=== PATIENT | male | born 1935 | race Caucasian/White ===

== ENCOUNTER 2018-06-02 07:14 | Day surgery (SDC) | payer OTHER ==
[~2018-06-02] VITALS: Ht 175.3 cm; Wt 77.3 kg
[~2018-06-02 07:14] MED LIST: CLOBET30L TOP; DOCU100 PO; LOPE2C PO; MELA3 PO; MIRALAX17 GM PO; MVI PO; TRAZ50 PO; [UNRECOGNIZED DRUG - OTHER] TOP
--- NOTE | 2018-06-02 08:05 | NUR ---
History, Chart, Medications and Allergies reviewed before start of procedure. Patient confirms NPO status and agrees with scheduled surgery. Lungs clear T/O to Auscultation. Patient reports completing Chlorhexadine shower X2 prior to admission to hospital. Patient States Post-Procedure ride home has been arranged. Pre-Op teaching done. Pt verbalizes understanding.
--- NOTE | 2018-06-02 08:19 | NUR ---
REPORT TO NIKO COLMENARES RN.
--- NOTE | 2018-06-02 08:40 | NUR ---
REASSUMED CARE OF PATIENT.
--- NOTE | 2018-06-02 08:44 | NUR ---
COUNTER PROFESSIONAL REPORT COMPLETED AT BEDSIDE WITH ARBEN KO RN.
--- NOTE | 2018-06-02 11:34 | NUR ---
PT GIVEN APPLE JUICE TO DRINK. PT BIOX BOUNCING BETWEEN 87-93. PT INSTRUCTED TO TAKE LARGE DEEP BREATHS OFTEN. PT VERBALIZED AND DEMONSTRATES UNDERSTANDING. DRESSING D&I.
--- NOTE | 2018-06-02 12:04 | NUR ---
SECOND APPLE JUICE GIVEN AND NORCO 1 TAB PO ORDERED. FRIEND ALEXANDRA NOT HERE YET. WILL CONT TO MONITOR PT AND ENCOURAGE TO DEEP BREATH AND COUGH, OVERALL O2 SATS HAVE IMPROVED.
--- NOTE | 2018-06-02 16:54 | NUR ---
DR DUMONT DECIDED TO ADMIT PATIENT TO SURGICAL FLOOR FOR EXTENDED OBSERVATIONS. PT REMAINED STABLE T/O RECOVERY AND STAY IN SDS WHILE WAITING FOR A BED. PT TRAY SENT TO THE ROOM. ALL BELONIGNS PROVIDED ALONG WITH PT AND SCROTUM PROTECTOR. PT CONTINUES TO DENY PAIN T/O.
--- NOTE | 2018-06-02 17:52 | NUR ---
SUMMARY PATINT WITH LEFT GROIN DRESSING DRY AND INTACT. GAUZE DRESSING IN PLACE WITHOUT DRAINAGE. PATIENT MEDICATED FOR 2-3/10 GROIN PAIN. DENIES NAUSEA- EATING DINNER AT THIS TIME
--- NOTE | 2018-06-03 04:16 | NUR ---
SHIFT SUMMARY: PT POD #1 FOR INGUINAL HERNIA REPAIR TO LEFT SIDE. A&O X4. VS WNL. PAIN MANAGED WITH 1 NORCO Q4 PER EMAR. PT OOB ONCE WITH ONE ASSIST USING FWW. VOIDING SML AMT. KAROL REG DIET. DENIES PASSING FLATUS. RESTING MOST OF SHIFT. USING CALL LIGHT APPROPRIATLY.
--- NOTE | 2018-06-03 17:21 | NUR ---
SHIFT SUMMARY PT POD 1 L INGUINAL HERNIA REPAIR. GAUZE DRESSING IN PLACE, C/D/I. STILL HAS SWELLING IN L GROIN AREA, AWARE. PT TOLERATING REGULAR DIET WITH NO N/V. 1 ASSIST FOR TRANSFERS TO BATHROOM W/FWW. PT HAS DENIED PAIN THIS SHIFT.
--- NOTE | 2018-06-03 19:13 | NUR ---
CIWA PT HAD INCREASED AGGITATION AT APROX 1745, PT HAS HX OF DRINKING 3 DRINKS/DAY-DOES NOT VERBALIZE WHAT TYPE OF ALCOHOL HE DRINKS. CIWA DONE ON PT, CIWA SCORE OF 7. DR PARIKH NOTIFIED, VERBAL ORDER FOR CIWA ORDER SET. PT MEDICATED WITH 1MG PO ATIVAN-PT APPEARS MORE CALM AT THIS TIME, CIWA OF 5. CORE MACHINE TENDER AND NURSING DE ICER ELEMENT WINDER NOTIFIED.
--- NOTE | 2018-06-04 04:16 | NUR ---
SHIFT SUMMARY: PT POD #2 FOR L INGUINAL HERNIA REPAIR. PT DENIES PAIN T/O SHIFT. GIVEN IV ATIVAN 1MG AND LIBRIUM PER ELELAVTED CIWA FOR INCREASED AGITATION AND TREMORS. HIGHEST CIWA AT 7. CIWA STABLE AT THIS TIME. CONTINUING TO VOID SML AMT. POOR PO INTAKE. SLEEPING MOST OF SHIFT.
--- NOTE | 2018-06-04 17:52 | NUR ---
SUMMARY CIWA 0 THROUGHOUT SHIFT. PATIENT UP TO RESTROOM WITH 2 PERSON ASSIST AND WALKER, UNSTEADY ON FEET AND IMPULSIVE. DUE TO PREVIOUS HIP SURGERY PATIENT STANDS OVER TOILET TO VOID. ABD DRESSING DRY AND INTAACT, SWELLING AND BRUISIN TO LEFT GROIN AND SCROTUM, PATIENT REFUSES TO WEAR ATHLETIC SUPPORT.
--- NOTE | 2018-06-05 04:07 | NUR ---
SHIFT SUMMARY: NO ACUTE CHANGES THIS SHIFT. PT POD #3 NOW FOR L INGUINAL HERNIA REPAIR. CIWA'S REMAINED STABLE T/O SHIFT AT 0. MEDICATED WITH NORCO ONCE THIS SHIFT PER EMAR. SALINE LOCKED. DRINKING AND VOIDING ADEQUATE AMT. PT OFTEN BECOMES FRUSTURATED R/T DIFFICULTY IN VOIDING IN URINAL. PROVIDING ASSISTANCE PRN. ATTENDS IN PLACE. RESTING MOST OF SHIFT. NO CONCERNS AT THIS TIME.
--- NOTE | 2018-06-05 07:24 | NUR ---
06/05/18 0724 Farida Holcomb VERIFICATIONS: EDIT CHART.
--- NOTE | 2018-06-05 07:50 | NUR ---
pt on bed woodruff worried about having another loose bm also has urinal to void est 200 in it offered to empty it pt wanting to keep it pt dressing to l groin cdi pt has swelling still to site worried that is is still swollen
--- NOTE | 2018-06-05 09:20 | NUR ---
dr riddle called after talking with ss req pt/ot consult
--- NOTE | 2018-06-05 13:27 | NUR ---
assisted pt to the bathroom pt had to stand to have a bm two max assist
--- NOTE | 2018-06-05 14:34 | NUR ---
pt attempted to get up needs assist help to bathroom gas only assisted back to bed
--- NOTE | 2018-06-05 15:00 | NUR ---
dr riddle by to see pt
--- NOTE | 2018-06-05 16:29 | NUR ---
pt watching tv pt had visitor earlier
--- NOTE | 2018-06-05 17:52 | NUR ---
pt eating dinner
--- NOTE | 2018-06-06 05:39 | NUR ---
POD 4 S/P LEFT INGUINAL HERNIA REPAIR. PT VSS T/O NIGHT. DRESSING CDI, SWELLING NOTED AROUND SITE. PT REP PAIN KAROL, DENIED NEED FOR PAIN MEDS. PT KAROL REG PO, IS VOIDING URINE W/O DIFFICUTLY, HAD 1 LARGE BM THIS SHIFT. PT IS MILDLY AGITATED AT TIMES, LIBRIUM GIVEN X1 PER PT REQ R/T ETOH "RESTLESSNESS" PT USING CALL LIGHT FOR ASSISTANCE, WILL CONT TO MONITOR UNTIL REP GIVEN TO ONCOMING RN.
--- NOTE | 2018-06-06 07:23 | NUR ---
pt unable to locate his urinal voided in his coffee cup assisted him with a urinal also reposistioned him and placed him on bed woodruff per his req will ask dr riddle if i can change the dressing
--- NOTE | 2018-06-06 10:00 | NUR ---
pt amb in hallway with physical therapy req hh for patient
--- NOTE | 2018-06-06 11:47 | NUR ---
called pt's friend brandi talked with him re discharge home vs snf placment and physical therapy req for hh worried wanting to talk with ss about it i called dr riddle office and left a message
--- NOTE | 2018-06-06 15:18 | NUR ---
PT REQ PAIN MEDS 1 TAB PO NORCO GIVEN
--- NOTE | 2018-06-06 17:16 | NUR ---
PT'S CAREGIVER CAME BY WAS ABLE TO TALK WITH SS RE PT COMING HOME STATED HE IS TALKING WITH THE [facility] TO TR[facility] AND GET HIM OVER THERE STATED THAT PT AND HIS MOTHER DO NOT GET ALONG HE ALSO TALKED WITH DR DUMONT RE THIS MATTER
--- NOTE | 2018-06-06 17:45 | NUR ---
pt eating dinner
--- NOTE | 2018-06-07 04:21 | NUR ---
CONTINUES TO IMPROVE, VOICED HALLUCINATIONS WHILE TRYING TO REST. WILLCUSS WHILE USING URINAL. REFUSES MIRALAX, STATES THAT IT TASTES BAD. DENIES PAIN, DISCOMFORT, OR FURTHER NEEDS AT THIS TIME. SAFETY MEASURES IN PLACE. WILL GIVE HAND OFF TO ONCOMING SHIFT USING SBAR DURING BEDSIDE REPORT.
--- NOTE | 2018-06-07 08:20 | NUR ---
PT STACEY MATAMOROS DISCUSSED PRIOR SVC. A/O. DENIES PAIN AT THIS TIME. H/R IRREG, STATES THINKS HX OF AFIB. NO MURMER NOTED. NO TELE. LUNGS CLEAR SOME DIM IN BASES. ON R/A. RESP EASY, UNLABORED. . BT X4 LAST BM 2 DAYS. VOIDS URINAL. HIP FUSION, UNABLE TO BEND AT HIPS. 2 ASST TO BATHROOM. BED IN LOW POSITION, CALL LIITE IN REACH, CALLS APPROP
--- NOTE | 2018-06-07 14:07 | NUR ---
RE IRREG, H/R. PT STATES DID TAKE DIGOXIN AT ONE TIME, DOES NOT THINK WAS ON ANTICOAG. PT STATES [facility] NOT [facility] ANY MORE. SO HAS NOT TAKEN FOR COUPLE MONTHS.
--- NOTE | 2018-06-07 16:26 | NUR ---
KELVIN Jennings/Rishi PUMP SERVICER CALLED. NOT ABALE TO REACH ALEXANDRA/ CHAD WELLS. I CALLED TC
--- NOTE | 2018-06-07 16:39 | NUR ---
PT PLEASANT TODAY. DENIES PAIN. ALEXANDRA CARE ASSISTER NOT ABLE TO TAKE HOME TODAY. EXPECTING TO [facility] UP [facility]OUGH [facility] PER ALEXANDRA. KELVIN CALLED AND CANNOT REACH HIM. CALLED AND ATTEMPTED TO LEAVE MS. PT VERY STIFF, UNABLE TO BEND WELL AT HIPS. 2 ASST. EXPECTING TO GO HOME TODAY OR TOMORROW. BED IN LOW POSITIOIN, CALL LITE IN REACH, CALLS APPROP.
--- NOTE | 2018-06-07 16:44 | NUR ---
[address] TIM MERCADO IRREG H/R AND PT STATES NO DIGOXIN OR THINNERS. DR GLASS AND STATES PT TO SEE [facility] TO RESOLVE.
--- NOTE | 2018-06-07 19:32 | NUR ---
ALEXANDRA IN ROOM. STATES CAN TAKE PT HOME TOMORRWO TO [place] IF NECESSARY. [facility] TO HAVE MEETING TO SEE HOW / IF CAN BE PLACED THERE. ANIMAL TRAINER NOTIFIED.
--- NOTE | 2018-06-08 06:18 | NUR ---
CONTINUES TO IMPROVE, RESTED WELL THIS SHIFT. WILL STILL CUSS WHILE USING URINAL. ASKED FOR MIRALAX TO BE GIVEN IN APPLE JUICE. DENIES PAIN, DISCOMFORT, OR FURTHER NEEDS AT THIS TIME. SAFETY MEASURES IN PLACE. WILL GIVE HAND OFF TO ONCOMING SHIFT USING SBAR DURING BEDSIDE REPORT.
--- NOTE | 2018-06-08 13:14 | NUR ---
FRIEND IN ROOM TALKING WITH CASE MANAGEMENT.
--- NOTE | 2018-06-08 14:22 | NUR ---
PT WORKING WITH THERAPY.
--- NOTE | 2018-06-08 16:12 | NUR ---
DR DUMONT HERE. DISCUSSED PT'S STATUS.
[2018-06-08] MEDS ORDERED: HYDR1TAB94 PO (16:59)
--- NOTE | 2018-06-08 18:58 | NUR ---
DISCHARGE: PT OUT OF HOSPITAL WITH GURNEY TRANSPORT. BELONGINGS AND PAPERWORK SENT WITH PT. IV OUT WNL. PT/FRIEND REPORTED EARLIER TODAY UNDERSTANDING DISCHARGE INSTRUCTIONS PT IS TO GO STAY WITH FRIEND WHO REPORTS WILL BE STAYING WITH PT TO ASSIST. FRIEND REPORTS HAVING APPROPRIATE EQUIPMENT AT HOME AND THAT THERE IS W/C RAMP THERE. FRIEND GIVEN SCRIPT EARLIER PER PT REQ TO HAVE FILLED EARLIER TODAY. ACCOUNT SPECIALIST BEEN ASSISTING WITH DISCHARGE. [facility] WAS NOTIFIED THIS EVENING AFTER OBTAINING ADDRESS FROM FRIEND...[address] WHICH WAS GIVEN TO [facility]. [facility] GAVE CONSULT # [id number]. TRANSPORT CALLED AND GIVEN CONSULT # AND ADDRESS. FRIEND ALSO TOOK NEW ABD BINDER FOR PT TO USE AT HOME. PT HAS JOCK STRAP WELL.
== END 2018-06-08 19:00 | disposition home health service (06) ==
LOC: ORSCMMR 07:14 → ORD 09:00 → ORSCMMR 09:00 → SURS 17:11 → ORSCMMR 21:42
PROVIDERS: Surgery
PROC: 0YU60JZ Supplement Left Inguinal Region with Synthetic Substitute, Open Approach (ICD-10-PCS; principal; 2018-06-02 09:00)
DX: K40.30 Unilateral inguinal hernia, with obstruction, without gangrene, not specified as recurrent (principal); F10.231 Alcohol dependence with withdrawal delirium; K59.00 Constipation, unspecified; R19.7 Diarrhea, unspecified; L40.8 Other psoriasis; C61 Malignant neoplasm of prostate; Z79.899 Other long term (current) drug therapy; Z28.20 Immunization not carried out because of patient decision for unspecified reason
CPT/HCPCS: 97110; 97116; 97162; 97166; 97530; 97535; C1781; J0690; J1100; J1885; J2060; J2250; J2405; J3010; J7120

== ENCOUNTER 2019-01-03 11:17 | Day surgery (SDC) | payer OTHER ==
[~2019-01-03] VITALS: Ht 172.7 cm; Wt 70.7 kg
[~2019-01-03 11:17] MED LIST changes: +Anti-Diarrheal2 MG PO; +BICALUTAMIDE50 MG PO; +CARV3.125 PO; +Flonase 0.05% N16 GM; +HYDR1TAB94 PO; +Naproxen250 MG PO
--- NOTE | 2019-01-03 12:16 | NUR ---
01/03/19 1216 Marino To CALL LIGHT WITHIN REACH. FAMILY AT BEDSIDE
--- NOTE | 2019-01-03 14:40 | NUR ---
01/03/19 1440 Franko Steven TOPICAL [facility] USED ON SKIN GRAFT. LOT#[id number] EXP 05/2019.
--- NOTE | 2019-01-03 16:41 | NUR ---
01/03/19 1641 Shauna Savage PT UNABLE TO HOLD OXYGEN SATURATION ABOVE 92%. OXYGEN RANGING FROM 75-86. OXYGEN PLACED VIA FACE TENT AT 15L/MIN. OXYGEN INCREASED TO 97%-99%. TITRATED DOWN TO 10L/MIN. PT TOLERATING WELL. PT VERBALIZED NEED TO URINATE; PT STATES UNABLE TO HOLD IT. URINAL PROVIDED. PT REQUESTED TO ROLL ONTO RIGHT SIDE. CAREERS COUNSELLOR AND THIS RN ROLLED PATIENT AND HELD URINAL. PT UNABLE TO VOID. PT THEN TRANSFERRED TO CHAIR. PT UNABLE OR UNWILLING TO ASSIST IN TRANSFER. PT VERY STIFF AND NOT ANSWERING QUESTIONS AND REQUESTS TO HELP ASSIST WITH MOVE. PT POSITIONED INTO CHAIR, OXYGEN AND VITAL MONITORS REAPPLIED. PT STATES PAIN 5/10 IN RIGHT LOWER LEG. PT MEDICATED WITH 50MCG FENTANYL IVP PER ORDERS.
[2019-01-04 04:08] LABS: BASOPHILS PERCENT AUTO 0 % (0-2); EOSINOPHILS PERCENT AUTO 0 % (0-6); Hematocrit 28.3 % (37.0-53.0); Hemoglobin 8.9 g/dL (13.5-17.5); IMMATURE GRAN ABSOLUTE AUTO 0.01 K/mm3 (0.00-0.10); IMMATURE GRAN PERCENT AUTO 0 % (0-1); LYMPHOCYTES ABSOLUTE AUTO 0.41 K/mm3 (0.84-5.20); LYMPHOCYTES PERCENT AUTO 10 % (21-46); MONOCYTES ABSOLUTE AUTO 0.38 K/mm3 (0.16-1.47); MONOCYTES PERCENT AUTO 9 % (4-13); Mean Corpuscular HGB 31.7 pg (26.0-34.0); Mean Corpuscular HGB Conc 31.4 g/dL (31.5-36.5); Mean Corpuscular Volume 101 fL (80-100); Mean Platelet Volume 9.8 fL (9.1-12.4); NEUTROPHILS ABSOLUTE AUTO 3.32 K/mm3 (1.96-9.15); NEUTROPHILS PERCENT AUTO 81 % (41-73); Platelet Count 149 K/mm3 (150-400); RDW Standard Deviation 56.2 fL (35.1-46.3); Red Blood Cell Count 2.81 M/mm3 (4.30-5.90); White Blood Cell Count 4.12 K/mm3 (4.00-11.30)
[2019-01-04 04:32] LABS: Anion Gap 7 mmol/L (6-16); Blood Urea Nitrogen 19 mg/dL (8-24); Bun/Creatinine Ratio 21.6 (12.0-20.0); CO2, Blood 25 mmol/L (21-32); Calcium, Blood 7.5 mg/dL (8.5-10.1); Chloride, Blood 107 mmol/L (98-108); Creatinine, Blood 0.88 mg/dL (0.60-1.20); Glomerular Filtration Rate >60 (60-); Glucose, Blood 193 mg/dL (70-99); Potassium, Blood 4.2 mmol/L (3.5-5.5); Sodium, Blood 139 mmol/L (136-145)
--- NOTE | 2019-01-04 06:48 | NUR ---
Patient alert and oriented. Vital sign stable. Seen by Hospitalist. Oxygen saturations 92-95% on RA. Telemetry monitoring; Afib 60-80s. No complaints of chestpain or SOB. Voiding freely. Wound vacc to right leg. Dressing dry, clean, intact. Complaints of pain to bilateral lower extremeties. Lower extremeties elevated. chest Xray taken. Saline locked. Blood pressure 90s/50s, continue to monitor.
--- NOTE | 2019-01-04 18:44 | NUR ---
SHIFT SUMMARY DR JOHN WAS IN TO SEE PT TODAY AND CHANGED DRESSINGS ON R. THIGH AND L LOWER LEG. THANG WRAP/BOOT ON R LEG AT SURGICAL SITE. PT TOLERATING FOOD AND FLUIDS, VOIDING IN URINAL. PT HAS REPORTED NO PAIN TODAY. R LEG ELEVATED ON PILLOWS. PLAN IS FOR PT TO DC HOME TOMORROW WITH CAREGIVER.
--- NOTE | 2019-01-05 07:16 | NUR ---
Patient alert and oriented. Vital signs stable. On Telemetry monitoring; Afib. Denies chestpain or SoB. Voiding freely. Woundvacc to right leg. Dressings D/C/I. Patient complains of pain to bilateral lower extremeties. CMS intact.
--- NOTE | 2019-01-05 14:56 | NUR ---
ATTEMPTED TO CALL CAREGIVER ALEXANDRA, THREE TIMES TO NOTIFY OF D/C.
--- NOTE | 2019-01-05 18:17 | NUR ---
DISCHARGE NOTE DISCHARGE EDUCATION GIVEN TO PT AND CAREGIVER. CAREGIVER REPORTS UNDERSTANDING. PT BELONGINGS SENT HOME WITH PT. IV D/C'D WNL, NO OTHER IV'S IN PLACE. PT ESCORTED TO CAR WITH CAREGIVER, RN, AND SPEECH PROFESSOR.
== END 2019-01-05 17:45 | disposition home or self-care (01) ==
LOC: ORSCSDS 11:17 → ORSCMMR 11:17 → SURS 11:17 → ORSCSDS 13:00 → SURS 19:12 → ORSCSDS 01-05 17:45 → ORSCMMR 01-05 17:45
PROVIDERS: Hospitalist; Surgery
PROC: 0HBLXZX Excision of Left Lower Leg Skin, External Approach, Diagnostic (ICD-10-PCS; principal; 2019-01-03 13:00)
PROC: 0HBKXZX Excision of Right Lower Leg Skin, External Approach, Diagnostic (ICD-10-PCS; principal; 2019-01-03 13:00)
DX: C44.721 Squamous cell carcinoma of skin of unspecified lower limb, including hip (principal); D48.5 Neoplasm of uncertain behavior of skin; I87.2 Venous insufficiency (chronic) (peripheral); M79.3 Panniculitis, unspecified; I10 Essential (primary) hypertension; I48.0 Paroxysmal atrial fibrillation; F03.90 Unspecified dementia, unspecified severity, without behavioral disturbance, psychotic disturbance, mood disturbance, and anxiety; F20.9 Schizophrenia, unspecified; Z79.899 Other long term (current) drug therapy
CPT/HCPCS: 36415; 71045; 80048; 85025; 88305; 88331; 88332; A9270-GY; J0690; J1100; J1885; J1940; J2370; J2405; J2704; J3010; J7120

== ENCOUNTER 2019-01-12 01:55 | Day surgery (SDC) | payer OTHER | END 2019-01-12 23:12 | disposition home or self-care (01) | LOC: WOUND 01:55 | DX: L97.812 Non-pressure chronic ulcer of other part of right lower leg with fat layer exposed (principal); L97.329 Non-pressure chronic ulcer of left ankle with unspecified severity | CPT/HCPCS: G0463 ==

== ENCOUNTER 2019-01-18 00:17 | Day surgery (SDC) | payer OTHER | END 2019-01-18 23:26 | disposition home or self-care (01) | LOC: WOUND 00:17 | DX: L97.812 Non-pressure chronic ulcer of other part of right lower leg with fat layer exposed (principal); L97.821 Non-pressure chronic ulcer of other part of left lower leg limited to breakdown of skin ==

== ENCOUNTER 2019-01-22 14:02 | Day surgery (SDC) | payer OTHER | END 2019-01-22 22:54 | disposition home or self-care (01) | LOC: WOUND 14:02 | DX: T81.89XA Other complications of procedures, not elsewhere classified, initial encounter (principal); L97.812 Non-pressure chronic ulcer of other part of right lower leg with fat layer exposed; L97.821 Non-pressure chronic ulcer of other part of left lower leg limited to breakdown of skin; Z98.890 Other specified postprocedural states | CPT/HCPCS: G0463 ==

== ENCOUNTER 2019-03-07 10:04 | Day surgery (SDC) | payer OTHER | END 2019-03-07 22:42 | disposition home or self-care (01) | LOC: WOUND 10:04 | DX: L97.811 Non-pressure chronic ulcer of other part of right lower leg limited to breakdown of skin (principal); T86.821 Skin graft (allograft) (autograft) failure; I87.2 Venous insufficiency (chronic) (peripheral); F32.9 Major depressive disorder, single episode, unspecified | CPT/HCPCS: G0463 ==

== ENCOUNTER 2019-03-13 16:03 | Day surgery (SDC) | payer OTHER | END 2019-03-13 23:05 | disposition home or self-care (01) | LOC: WOUND 16:03 | DX: T86.821 Skin graft (allograft) (autograft) failure (principal); L97.811 Non-pressure chronic ulcer of other part of right lower leg limited to breakdown of skin; I87.2 Venous insufficiency (chronic) (peripheral); F32.9 Major depressive disorder, single episode, unspecified; Z79.899 Other long term (current) drug therapy ==

== ENCOUNTER 2019-03-23 10:52 | Day surgery (SDC) | payer OTHER | END 2019-03-23 23:20 | disposition home or self-care (01) | LOC: WOUND 10:52 | DX: L97.811 Non-pressure chronic ulcer of other part of right lower leg limited to breakdown of skin (principal); T86.821 Skin graft (allograft) (autograft) failure; C44.722 Squamous cell carcinoma of skin of right lower limb, including hip; F32.9 Major depressive disorder, single episode, unspecified; I87.2 Venous insufficiency (chronic) (peripheral); Z79.899 Other long term (current) drug therapy | CPT/HCPCS: G0463 ==